=== PATIENT | female | born 1955 | race Caucasian/White ===

== ENCOUNTER 2016-08-18 06:21 | Day surgery (SDC) | payer OTHER ==
[~2016-08-18] VITALS: Ht 160 cm; Wt 61.0 kg
[~2016-08-18 06:21] MED LIST: BUPR100T7 PO; CARV25TA79 PO; CYCL-319 PO; DOCU-144 PO; FERR325C PO; FLUT16SP24 NASAL; HYDR25TA6 PO; IBUP-1542 PO; LISI20TA11 PO; LOPE1LIQ33 PO; LOSA100T7 PO; QUESTRAN PO; RANI150C11 PO; SENN-36 PO; SMV40T PO; SULI150T39 PO; TRAM50TA2 PO; VIT500LI PO
[2016-08-18] MEDS ORDERED: SUMA4CAR SQ (06:57)
[2016-08-18] MEDS ORDERED: TOPI200C5 PO (06:57)
[2016-08-18] MEDS ORDERED: SULI150T39 PO (06:57)
[2016-08-18] MEDS ORDERED: FOLI0.8C PO (06:57)
[2016-08-18] MEDS ORDERED: OMEP40CA6 PO (06:57)
[2016-08-18] MEDS ORDERED: HEPARIN 1000 UNITS/NS (A-LINE) 1,000 ML ONE (07:00)
[2016-08-18] MEDS ORDERED: IODIXANOL LOCM 100 ML BTL ONE ×2 (07:00→08:02)
[2016-08-18] MEDS ORDERED: LIDOCAINE 1% (MDV) 20 ML INJ ONE (07:00)
[2016-08-18] MEDS ORDERED: FENTAnyl 50 MCG/ML VIAL ONE (07:01)
[2016-08-18] MEDS ORDERED: MIDAZOLAM 1 MG/ML 2 ML INJ ONE (07:01)
[2016-08-18 07:03] VITALS: Ht 160 cm; Wt 61.0 kg
[2016-08-18 07:04] VITALS: BP 154/80; PULSE 63; RESP 14
[2016-08-18 07:08] LABS: BASOPHIL # 0.1 10^3/ul (0.0-0.1); BASOPHILS % 0.6 % (0.0-2.0); EOSINOPHILS # 0.2 10^3/ul (0.0-0.5); EOSINOPHILS % 2.3 % (0.0-7.0); HEMATOCRIT 38.4 % (37.0-47.0); HEMOGLOBIN 12.5 g/dl (12.0-16.0); LYMPHOCYTES # 1.8 10^3/ul (0.8-2.9); LYMPHOCYTES % 20.3 % (15.0-51.0); MEAN CORPUSCULAR HEMOGLOBIN 32.8 pg (29.0-33.0); MEAN CORPUSCULAR HGB CONC 32.6 g/dl (32.0-37.0); MEAN CORPUSCULAR VOLUME 100.8 fl (82.0-101.0); MEAN PLATELET VOLUME 11.2 fl (7.4-10.4); MONOCYTE # 0.7 10^3/ul (0.3-0.9); MONOCYTES % 7.9 % (0.0-11.0); NEUTROPHIL # 6.2 10^3/ul (1.6-7.5); NEUTROPHILS % 68.7 % (39.0-77.0); PLATELET COUNT 230 10^3/UL (140-415); RED BLOOD COUNT 3.81 10^6/ul (4.20-5.40); RED CELL DISTRIBUTION WIDTH 12.9 % (11.5-14.5)
[2016-08-18 07:25] LABS: ALBUMIN 4.5 g/dl (3.3-4.9); ALBUMIN/GLOBULIN RATIO 1.66; TOTAL PROTEIN 7.2 g/dl (6.1-8.1)
[2016-08-18 07:26] LABS: CALCIUM 9.5 mg/dl (8.4-10.2); CREATININE 0.79 mg/dl (0.44-1.00); POTASSIUM 3.9 mmol/L (3.5-5.1)
[2016-08-18 07:34] LABS: INR 0.97; PROTIME 12.9 Sec (12.2-14.2)
[2016-08-18 07:35] LABS: PARTIAL THROMBOPLASTIN TIME 29.7 Sec (25.0-35.0)
[2016-08-18] MEDS ORDERED: SOD CHLORIDE 0.9% 1,000 ML IV SCH (08:02)
--- NOTE | 2016-08-18 08:02 | OPPN ---
Date/Time of Note Date/Time of Note DATE: 08/18/16 TIME: 08:01 Operative Report Preoperative Diagnosis Severe RLE claudication and night rest pain Postoperative Diagnosis Same Operation/Procedure Performed Aortogram, RLE angiogram - diagnostic Provider: MICHAEL NORRIS MD Anesthesia: MAC, other (Local) Estimated blood loss: minimal Specimens None Grafts/Implants None Complications: None MICHAEL NORRIS MD Aug 18, 2016 08:02
--- NOTE | 2016-08-18 08:16 | OPR ---
Date/Time of Note Date/Time of Note DATE: 08/18/16 TIME: 08:10 Operative Report Procedure Date: Aug 18, 2016 Preoperative Diagnosis Severe RLE claudication and night rest pain Operation Performed Aortogram, RLE angiogram - diagnostic Surgeon: MICHAEL NORRIS MD Anesthesia: MAC, other (Local) Estimated Blood Loss: minimal Grafts/Implants None Complications: None Pt Condition Post Procedure: stable Indications 61 y/o female s/p infrarenal aortic stent for severe stenosis and claudication, now with severe RLE claudication and night rest pain w/ occlusion of R EIA and [facility] on preprocedure imaging. She now presents for aortogram w/ RLE angiogram and possible intervention. The indications, risks and benefits of the procedure were discussed with the patient, who understood and agreed to proceed. Operative\Procedure Findings The patient was properly identified, brought to angiography suite and placed in supine position. The bilateral groins were prepped and draped in usual sterile fashion. She received moderate sedation throughout the procedure as needed. Using ultrasound, the left femoral artery was evaluated, noted to be patent with moderate disease. Local anesthesia was injected in skin and subcutaneous tissues. A micopuncture needle was used to access the left femoral artery under ultrasound guidance. A micropuncture wire was advanced under fluoroscopy followed by a micropuncture sheath. A 0.035 Bentson wire was advanced into the infrarenal aortic stent. A 5 Upper Sorbian sheath was placed. A flush catheter was advanced and spin test confirmed placement within the aortic stent. Aortogram was performed. This showed patent aortic stent, bilateral common iliac arteries , left internal and external iliac and common femoral arteries. The right external and common femoral arteries were completely occluded. The Bentson wire was readvanced and along with the flush catheter, the right common iliac artery was selected. Right leg angiogram was then performed. This showed reconstitution of the right superficial and profunda femoral arteries. The distal runoff is patent without significant disease throughout at SFA, popliteal and anterior and posterior tibial arteries with two vessels to the foot via posterior tibial and anterior tibial. The entire right leg vasculature is markedly small in caliber. Given these findings, the Bentson wire was readvanced to straighten the flush catheter and both were withdrawn under fluoroscopy. The 5 Upper Sorbian sheath was removed and hemostasis was achieved with manual compression. She tolerated the procedure well without any immediate complications and was transferred to recovery in good condition. MICHAEL NORRIS MD Aug 18, 2016 08:16
[2016-08-18 08:30] VITALS: BP 143/83; PULSE 66; RESP 18
[2016-08-18] MEDS ORDERED: ONDANSETRON 4 MG INJ IV PRN (08:30)
[2016-08-18] MEDS ORDERED: ACETAMINOPHEN 325 MG TAB PO PRN (08:30)
[2016-08-18 09:30] VITALS: BP 149/63; PULSE 53; RESP 18
[2016-08-18 09:42] LABS: ADD SCAN DIFF NO
[2016-08-18 10:45] VITALS: BP 139/61; PULSE 65; RESP 18
[2016-08-18 12:00] VITALS: BP 139/61; PULSE 65; RESP 18
== END 2016-08-18 12:15 | disposition home or self-care (01) ==
LOC: SDS 06:21
PROVIDERS: ATTEND Surgery
DX: I73.9 Peripheral vascular disease, unspecified (principal); I10 Essential (primary) hypertension; E78.5 Hyperlipidemia, unspecified; F17.200 Nicotine dependence, unspecified, uncomplicated
CPT/HCPCS: 36200; 75630; 80053; 85025; 85610; 85730; C1769; C1887; C1894; J1644; J2250; J3010; Q9967; Z7610

== ENCOUNTER 2016-11-05 05:17 | Inpatient (IN) | payer OTHER ==
[~2016-11-05] VITALS: Ht 160 cm; Wt 65.1 kg
[2016-11-05] VITALS (75 sets, daily range): BP systolic 101–187; BP diastolic 42–72; PULSE 56–74; RESP 9–26; Ht 160 cm; Wt 65.1 kg
[~2016-11-05 05:17] MED LIST changes: -BUPR100T7 PO; -DOCU-144 PO; -FERR325C PO; -FLUT16SP24 NASAL; +FOLI0.8C PO; -HYDR25TA6 PO; -LISI20TA11 PO; -LOPE1LIQ33 PO; +OMEP40CA6 PO; -RANI150C11 PO; -SENN-36 PO; -SMV40T PO; +SUMA4CAR SQ; +TOPI200C5 PO; -TRAM50TA2 PO; -VIT500LI PO
[2016-11-05] MEDS ORDERED: THROMBIN 5000 UNIT VIAL ONE (06:38)
[2016-11-05] MEDS ORDERED: GELATIN SIZE 100 SPONGE ONE (06:38)
[2016-11-05] MEDS ORDERED: HEPARIN 1000 UNITS/ML 10 ML INJ ONE ×2 (06:38→08:42)
[2016-11-05] MEDS ORDERED: CETI10TA71 PO (07:01)
[2016-11-05] MEDS ORDERED: HEPARIN 1000 UNITS/ML 10 ML INJ IRR ONE (07:30)
--- NOTE | 2016-11-05 07:32 | HPN ---
Date/Time of Note Date/Time of Note DATE: 11/05/16 TIME: 07:32 Interval H&P Admission Note Pt. seen H&P reviewed: No system changes RADHA SCHULTZ MD Nov 05, 2016 07:32
[2016-11-05] MEDS ORDERED: FENTAnyl 50 MCG/ML VIAL ONE (07:40)
[2016-11-05] MEDS ORDERED: PROPOFOL 20 ML ONE (08:17)
[2016-11-05] MEDS ORDERED: CEFAZOLIN 1 GM INJ ONE (08:17)
[2016-11-05] MEDS ORDERED: LIDOCAINE 2% (SDV) 5 ML INJ ONE (08:17)
[2016-11-05] MEDS ORDERED: SUGAMMADEX SODIUM 200 MG/2 ML VIAL IV ONE (08:17)
[2016-11-05] MEDS ORDERED: SUCCINYLCHOLINE CHLORIDE 100 MG/5 ML SYG IV ONE (08:17)
[2016-11-05] MEDS ORDERED: ROCURONIUM 50 MG INJ ONE (08:17)
[2016-11-05] MEDS ORDERED: THROMBIN 5000 UNIT VIAL TOP ONE (08:45)
[2016-11-05] MEDS ORDERED: GELATIN SIZE 100 SPONGE TOP ONE (08:45)
[2016-11-05] MEDS ORDERED: BUPIVACAINE 0.25% (STERILE-PAK) 30 ML INJ INJ ONE (09:15)
[2016-11-05] MEDS ORDERED: BUPIVACAINE 0.25% (MPF) 30 ML INJ ONE (09:16)
--- NOTE | 2016-11-05 09:32 | OPR ---
Date/Time of Note Date/Time of Note DATE: 11/05/16 TIME: 09:29 Operative Report Procedure Date: Nov 05, 2016 Preoperative Diagnosis PVD Postoperative Diagnosis Same Operation Performed Femoral femoral bypass Surgeon Luis Angel Schultz. Maintenance Shop Clerk: AURA BENTLEY MD Anesthesia Type: general Estimated Blood Loss: 50 - 100 ml's Transfusion Required: no Specimen: none Grafts/Implants 8mm hemashield graft. Complications: no Pt Condition Post Procedure: stable Disposition: PACU LUIS ANGEL SCHULTZ MD Nov 05, 2016 09:32
[2016-11-05] MEDS ORDERED: SOD CHLORIDE 0.9% 1,000 ML IV SCH (09:33)
[2016-11-05] MEDS ORDERED: LABETALOL HCL 20MG INJ ONE (09:47)
--- NOTE | 2016-11-05 09:54 | CONS ---
Date/Time of Note Date/Time of Note DATE: 11/05/16 TIME: 09:50 Assessment/Plan Assessment/Plan Additional Assessment/Plan 61 yo F with HTN, PVD admitted for planned LE bypass which she underwent . PLAN cont home BP meds cont PPI resume asa 81 daily when ok'd by vascular surgery smoking cessation advised for incidental finding of macrocytic anemia, b12/folate/tsh were ordered. will likely need outpatient PCP f/u discharge planning as per primary service (vascular surgery) hospitalist service to continue to follow Consultation Date/Type/Reason Admit Date/Time Nov 05, 2016 at 05:17 Type of Consultation: hospitalist Reason for Consultation medical management Referring Provider: RADHA SCHULTZ MD Hx of Present Illness 61 yo F with pmhx PVD admitted for planned LE bypass for claudication which she underwent today. Pt seen in PACU and is currently without complaint. 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
[2016-11-05] MEDS ORDERED: OXYCODONE/ACETAMINOPHEN (5/325) TAB PO PRN (10:00)
[2016-11-05] MEDS ORDERED: METOCLOPRAMIDE 10 MG INJ IV PRN (10:00)
[2016-11-05] MEDS ORDERED: LABETALOL HCL 20MG INJ IV PRN (10:00)
[2016-11-05] MEDS ORDERED: MEPERIDINE 25 MG INJ IV PRN (10:00)
[2016-11-05] MEDS ORDERED: hydrALAzine 20 MG INJ IV PRN (10:00)
[2016-11-05] MEDS ORDERED: ONDANSETRON 4 MG INJ IV PRN (10:00)
[2016-11-05] MEDS ORDERED: HYDROmorphONE (0.2 MG/ML) 10ML SYG IV PRN ×2 (10:00)
[2016-11-05] MEDS ORDERED: DIPHENHYDRAMINE 50 MG INJ IV PRN (10:00)
[2016-11-05] MEDS ORDERED: FENTAnyl 50 MCG/ML VIAL IV PRN ×2 (10:00)
--- NOTE | 2016-11-05 10:50 | RADRPT ---
PROCEDURE: XR Chest 1 View. CLINICAL INDICATION: Chest pain and shortness of breath, peripheral vascular disease. TECHNIQUE: AP view of the chest was obtained. COMPARISON: None. FINDINGS: The heart size is within normal limits. Calcified atherosclerosis is noted in the aorta. No consol idations are identified. No pneumothorax is seen. Subsegmental atelectasis is seen in the right mid lung. Osseous structures are intact. IMPRESSION: Calcified atherosclerosis in the aorta. Subsegmental atelectasis in the right mid lung. RPTAT: AA .Jaret Hernandez MD, MD Date Time Electronically viewed and signed by .Jaret Hernandez MD, MD on 11/05/2016 10:50 .P/
[2016-11-05 11:01] LABS: AADO2 Arterial 96.4 mmHg (7.0-24.0); Arterial Base Excess -7.5 mmol/L (-3.0-3); Arterial COHb 0.3 % (0.0-3.0); Arterial Fraction of Oxyhgb 95.3 % (93.0-99.0); Arterial HCO3 17.8 mmol/L (22.0-26.0); Arterial MetHb 0.3 % (0.0-1.5); Arterial Total Hemglobin 11.7 g/dl (12.0-18.0); MODE NASAL CANNULA
[2016-11-05 11:12] LABS: BASOPHILS % 0.3 % (0.0-2.0); EOSINOPHILS # 0.1 10^3/ul (0.0-0.5); EOSINOPHILS % 1.2 % (0.0-7.0); HEMATOCRIT 32.3 % (37.0-47.0); HEMOGLOBIN 10.9 g/dl (12.0-16.0); LYMPHOCYTES # 1.5 10^3/ul (0.8-2.9); LYMPHOCYTES % 22.6 % (15.0-51.0); MEAN CORPUSCULAR HEMOGLOBIN 34.4 pg (29.0-33.0); MEAN CORPUSCULAR HGB CONC 33.7 g/dl (32.0-37.0); MEAN CORPUSCULAR VOLUME 101.9 fl (82.0-101.0); MEAN PLATELET VOLUME 10.7 fl (7.4-10.4); MONOCYTE # 0.3 10^3/ul (0.3-0.9); MONOCYTES % 4.5 % (0.0-11.0); NEUTROPHIL # 4.7 10^3/ul (1.6-7.5); NEUTROPHILS % 71.1 % (39.0-77.0); PLATELET COUNT 193 10^3/UL (140-415); RED BLOOD COUNT 3.17 10^6/ul (4.20-5.40); RED CELL DISTRIBUTION WIDTH 12.8 % (11.5-14.5); WHITE BLOOD COUNT 6.6 10^3/ul (4.8-10.8)
[2016-11-05 11:35] LABS: CREATININE 0.64 mg/dl (0.44-1.00)
[2016-11-05 11:36] LABS: CHOL/HDL RATIO 1.9 RATIO
[2016-11-05 11:48] LABS: PT RATIO 1.1
[2016-11-05] MEDS: POTASSIUM CHLORIDE 40 MEQ, CALCIUM CHLORIDE 10% 1 GM in DEXTROSE 5%-0.225% NACL 1,000 ML IV SCH (11:51)
[2016-11-05 12:49] LABS: INR 1.03; PROTIME 13.5 Sec (12.2-14.2)
[2016-11-05 12:52] LABS: PARTIAL THROMBOPLASTIN TIME 45.6 Sec (25.0-35.0)
[2016-11-05 15:04] LABS: THYROID STIMULATING HORMONE 2.6 MIU/L (0.465-4.680)
[2016-11-05 15:39] LABS: FOLATE 10.6 ng/ml (2.8-20.0)
--- NOTE | 2016-11-05 16:11 | RADRPT ---
Vent Rate: 63 bpm RR Interval: 0 msec MD Interval: 134 msec QRS Duration: 72 msec QT Interval: 426 msec QTC Interval: 435 msec P-R-T [place]: 65 - 71 - 90 degrees Normal sinus rhythm ST amp; T wave abnormality, consider anterior ischemia Abnormal ECG Electronically Signed By: Fei Mclean [id number]
[2016-11-05] MEDS: HYDROmorphONE (0.2 MG/ML) 10ML SYG IV PRN ×3 (16:47→21:01)
[2016-11-05] MEDS: LOSARTAN 50 MG TAB PO SCH (19:35)
[2016-11-05] MEDS: CHOLESTYRAMINE 4 GM PACKET PO SCH ×2 (19:37→21:59)
--- NOTE | 2016-11-05 19:43 | OPR ---
DATE OF OPERATION: 11/05/2016 PREOPERATIVE DIAGNOSIS: Right lower extremity severe claudication. POSTOPERATIVE DIAGNOSIS: Right lower extremity severe claudication. OPERATION PERFORMED: [id number] bypass, using 8-mm ADIEL sheet graft. SURGEON: Luis Angel Ramesh MD WEARING APPAREL ASSEMBLER: Mekhi Herrera MD ANESTHESIA: General. INDICATIONS FOR THE PROCEDURE: Patient is a 61-year-old female with extensive history of peripheral vascular disease, status post placement of aortic stent for aortic occlusion. Patient presented here in followup with severe right lower extremity claudication, with few feet distance of claudication distance. Angiogram was done. It showed occlusion of the right iliac arteries, common and external. Patient was considered for the low anterior procedure, due to her high risk for an aortobifemoral bypass. The risks and benefits discussed with the patient and her family. They understood and agreed to proceed. OPERATIVE PROCEDURE: Patient was brought to the operating room after obtaining formal consent. Patient in supine position on the operating table. Anesthesia administered and maintained using endotracheal intubation. Area of surgery was cleaned, prepped and draped in the usual sterile fashion. Common femoral arteries were exposed bilaterally through vertical incisions in both groins. Incisions were done using 15-blade scalpel. Taken down through the subcutaneous tissue using the Bovie. Using sharp dissection with scissors, superficial femoral artery and profunda femoral artery bilaterally were exposed and dissected circumferentially. Patient was heparinized intravenously. An 8-mm ADIEL sheet graft was tunneled in the suprapubic region using a large aortic long clamp. Then a longitudinal arteriotomy was done using 11-blade scalpel and Lange scissors in the common femoral artery, extended to the superficial femoral artery. An end-to-side anastomosis was then established between the graft and the arteriotomy using 6-0 Prolene suture in continuous running technique. Prior to completion of suture alignment, was completed. Hemostasis at the suture line was achieved using Xeroform and thrombin and interrupted 6-0 Prolene suture. Patient had very strong palpable pedal pulses. Incisions were irrigated. Subcutaneous tissue was closed in layers using 3-0 Vicryl sutures. Edges of skin were approximated together using a 4-0 Monocryl in subcuticular fashion. Steri-Strips were applied as well as dry dressing. The patient was then extubated and successfully transferred to the recovery room in stable condition. Dictated By: Luis Angel Ramesh MD /neo/noelle /Document#: [id number] CC: Luis Angel Ramesh MD
[2016-11-05] MEDS ORDERED: FAMOTIDINE 20 MG TAB PO SCH (21:00)
[2016-11-06] VITALS (44 sets, daily range): BP systolic 17–282; BP diastolic 42–278; PULSE 56–76; RESP 12–23
[2016-11-06] MEDS: HYDROCODONE/APAP (5/325) TAB PO PRN ×2 (00:55→08:28)
[2016-11-06] MEDS: ACETAMINOPHEN 325 MG TAB PO PRN ×2 (03:34→14:22)
[2016-11-06] MEDS: POTASSIUM CHLORIDE 40 MEQ, CALCIUM CHLORIDE 10% 1 GM in DEXTROSE 5%-0.225% NACL 1,000 ML IV SCH (04:48)
[2016-11-06 05:33] LABS: BASOPHILS % 0.1 % (0.0-2.0); EOSINOPHILS % 0.5 % (0.0-7.0); HEMATOCRIT 31.3 % (37.0-47.0); HEMOGLOBIN 10.8 g/dl (12.0-16.0); LYMPHOCYTES # 1.8 10^3/ul (0.8-2.9); LYMPHOCYTES % 21.9 % (15.0-51.0); MEAN CORPUSCULAR HEMOGLOBIN 34.2 pg (29.0-33.0); MEAN CORPUSCULAR HGB CONC 34.5 g/dl (32.0-37.0); MEAN CORPUSCULAR VOLUME 99.1 fl (82.0-101.0); MEAN PLATELET VOLUME 10.8 fl (7.4-10.4); MONOCYTE # 0.6 10^3/ul (0.3-0.9); MONOCYTES % 7.1 % (0.0-11.0); NEUTROPHIL # 5.7 10^3/ul (1.6-7.5); NEUTROPHILS % 70.2 % (39.0-77.0); PLATELET COUNT 199 10^3/UL (140-415); RED BLOOD COUNT 3.16 10^6/ul (4.20-5.40); RED CELL DISTRIBUTION WIDTH 12.6 % (11.5-14.5); WHITE BLOOD COUNT 8.2 10^3/ul (4.8-10.8)
[2016-11-06 05:51] LABS: INR 1.01; PROTIME 13.3 Sec (12.2-14.2)
[2016-11-06 05:52] LABS: PARTIAL THROMBOPLASTIN TIME 30.4 Sec (25.0-35.0)
[2016-11-06] MEDS ORDERED: PANTOPRAZOLE (EC) 40 MG TAB PO SCH (06:00)
[2016-11-06 06:09] LABS: CALCIUM 8.9 mg/dl (8.4-10.2); CREATININE 0.57 mg/dl (0.44-1.00); MAGNESIUM 1.7 mg/dl (1.7-2.5); POTASSIUM 3.9 mmol/L (3.5-5.1)
[2016-11-06 06:42] LABS: AADO2 Arterial 26.5 mmHg (7.0-24.0); Arterial Base Excess -6.9 mmol/L (-3.0-3); Arterial COHb 0.3 % (0.0-3.0); Arterial Fraction of Oxyhgb 96.3 % (93.0-99.0); Arterial HCO3 16.5 mmol/L (22.0-26.0); Arterial MetHb 0.1 % (0.0-1.5); Arterial Total Hemglobin 11.2 g/dl (12.0-18.0); MODE ROOM AIR
[2016-11-06] MEDS: LOSARTAN 50 MG TAB PO SCH (08:28)
[2016-11-06] MEDS: CHOLESTYRAMINE 4 GM PACKET PO SCH (08:28)
[2016-11-06] MEDS ORDERED: SULINDAC 150 MG TAB PO SCH (09:00)
[2016-11-06] MEDS ORDERED: FOLIC ACID 0.4 MG TAB PO SCH (09:00)
[2016-11-06] MEDS ORDERED: LORATADINE 10 MG TAB PO SCH (09:00)
--- NOTE | 2016-11-06 09:16 | PN ---
Date/Time of Note Date/Time of Note DATE: 11/06/16 TIME: 09:13 Assessment/Plan VTE Prophylaxis VTE Prophylaxis Intervention: ambulation Lines/Catheters IV Catheter Type (from Nrsg): Peripheral IV Urinary Cath still in place: No Assessment/Plan Assessment/Plan s/p fem-fem bypass palpable distal pulses pain controlled d/c micheal now tolerating diet stable to discharge home with tylenol and advil for pain control f/u with Dr. Ramesh in 2 weeks Subjective 24 Hr Interval Summary Constitutional: no complaints Gastrointestinal: no complaints Genitourinary: no complaints Exam/Review of Systems Vital Signs Vitals Vital Signs Date Time Temp Pulse Resp B/P Pulse Ox O2 Delivery O2 Flow Rate FiO2 11/06/16 07:00 276/272 11/06/16 06:45 59 16 99 11/06/16 04:00 98.4 11/06/16 00:30 Room Air 11/05/16 14:25 2.0 Intake and Output 11/05/16 11/05/16 11/06/16 15:00 23:00 07:00 Intake Total 1050 ml 760 ml Output Total 205 ml 2200 ml Balance 845 ml -1440 ml Exam Constitutional: alert, oriented, well developed Head: atraumatic, normocephalic Respiratory: clear to auscultation Cardiovascular: regular rate and rhythm Gastrointestinal: soft Extremities: normal pulses Neurological: nl strength Results Result Diagram: 11/06/16 0500 11/06/16 0500 Results 24 hrs Laboratory Tests Test 11/05/16 09:33 11/05/16 10:58 11/05/16 12:15 11/06/16 05:00 Blood Gas Specimen Source Blood arterial Blood arterial Arterial Blood Date Drawn 11/05/2016 10:45:07 AM 11/06/2016 6:35:54 AM Arterial Blood pH (Temp corrected) 7.318 L 7.406 Arterial Blood pCO2 (Temp correct) 35.6 26.9 L Arterial Blood pO2 (Temp corrected) 90.1 91.0 Arterial Blood HCO3 17.8 L 16.5 L Arterial Blood Base Excess -7.5 L -6.9 L Arterial Blood Oxygen Saturation 95.9 96.7 Ezio Test N/A N/A Arterial Blood Gas Puncture Site A-Line A-Line Arterial Blood Carboxyhemoglobin 0.3 0.3 Arterial Blood Methemoglobin 0.3 0.1 Blood Gas A-a O2 Differential 96.4 H 26.5 H Oxyhemoglobin Percent 95.3 96.3 Total Hemoglobin 11.7 L 11.2 L Blood Gas Temperature 37.0 37.0 Blood Gas Modality NASAL CANNULA ROOM AIR FiO2 32.0 21.0 Blood Gas Notified Whom TM TM Blood Gas Notified Time 11/05/2016 11:01:04 AM 11/06/2016 6:42:25 AM White Blood Count 6.6 # 8.2 # Red Blood Count 3.17 L 3.16 L Hemoglobin 10.9 L 10.8 L Hematocrit 32.3 L 31.3 L Mean Corpuscular Volume 101.9 H 99.1 Mean Corpuscular Hemoglobin 34.4 H 34.2 H Mean Corpuscular Hemoglobin Concent 33.7 34.5 Red Cell Distribution Width 12.8 12.6 Platelet Count 193 199 Mean Platelet Volume 10.7 H 10.8 H Neutrophils % 71.1 70.2 Lymphocytes % 22.6 21.9 Monocytes % 4.5 7.1 Eosinophils % 1.2 0.5 Basophils % 0.3 0.1 Nucleated Red Blood Cells % 0.0 0.0 Neutrophils # 4.7 5.7 Lymphocytes # 1.5 1.8 Monocytes # 0.3 0.6 Eosinophils # 0.1 0.0 Basophils # 0.0 0.0 Nucleated Red Blood Cells # 0.0 0.0 Sodium Level 141 136 Potassium Level 4.0 3.9 Chloride Level 117 H 111 H Carbon Dioxide Level 19 L 19 L Anion Gap 9 10 Blood Urea Nitrogen 20 11 # Creatinine 0.64 0.57 Glucose Level 107 135 Hemoglobin A1c 5.6 Calcium Level 8.0 L 8.9 Magnesium Level 1.9 1.7 Triglycerides Level 82 Cholesterol Level 128 LDL Cholesterol, Calculated 47 HDL Cholesterol 65 Cholesterol/HDL Ratio 1.9 Vitamin B12 Level 533 Folate 10.6 Thyroid Stimulating Hormone (TSH) 2.600 Prothrombin Time 13.5 13.3 Prothrombin Time Ratio 1.1 1.0 INR International Normalized Ratio 1.03 1.01 Activated Partial Thromboplast Time 45.6 H 30.4 Medications Medications Current Medications Carvedilol (Coreg) 25 mg BID PO Last administered on 11/05/16t 21:59; Admin Dose 25 MG; Start 11/05/16 at 12:00 Cholestyramine Resin (Questran) 1 pkt BID PO Last administered on 11/06/16 08: 28; Admin Dose 1 PKT; Start 11/05/16 at 12:00 Losartan Potassium (Cozaar) 100 mg DAILY PO Last administered on 11/06/16 08: 28; Admin Dose 100 MG; Start 11/05/16 at 10:00 Loratadine 10 mg 10 mg DAILY PO Last administered on 11/05/16 11:53; Admin Dose 10 MG; Start 11/06/16 at 09:00 Sodium Chloride (NS) 1,000 ml @ 100 mls/hr Q10H IV ; Start 11/05/16 at 09:33; Status Future Hold Acetaminophen (Tylenol Tab) 650 mg Q6H PRN PO PAIN LEVEL 1-3 OR FEVER Last administered on 11/06/16 03:34; Admin Dose 650 MG; Start 11/05/16 at 10:00 Acetaminophen/ Hydrocodone Bitart 1 tab 1 tab Q6H PRN PO PAIN LEVEL 4-6 Last administered on 11/06/16 08:28; Admin Dose 1 TAB; Start 11/05/16 at 10:00 Potassium Chloride/Calcium Chloride/Dextrose/ Sodium Chloride (KCl/Ca Chloride/ D5-1/4ns) 1,030 ml @ 60 mls/hr [id number] IV Last administered on 11/06/16 04:48 ; Admin Dose 60 MLS/HR; Start 11/05/16 at 11:00 Folic Acid (Folic Acid) 0.8 mg DAILY PO Last administered on 11/05/16 11:53; Admin Dose 0.8 MG; Start 11/06/16 at 09:00 Pantoprazole (Protonix Tab) 40 mg DAILY@06 PO Last administered on 11/06/16 06 :23; Admin Dose 40 MG; Start 11/06/16 at 06:00 AURA BENTLEY MD Nov 06, 2016 09:16
--- NOTE | 2016-11-06 14:50 | QN ---
Documentation Comment Hospitalist consult service brief note asked to discharge patient on behalf of vascular surgery service as vascular surgeon has departed for the day discharge order entered asa to be resumed when ok'd by vascular surgery as previously noted, pt with macrocytic anemia of unclear etio. a referral was placed via the CM to set the patient up with a resource forester to investigate this matter Pt also needs to stop smoking. CONSTANCE CALLES MD Nov 06, 2016 14:50
--- NOTE | 2016-11-07 16:32 | RADRPT ---
Vent Rate: 57 bpm RR Interval: 0 msec VA Interval: 130 msec QRS Duration: 70 msec QT Interval: 428 msec QTC Interval: 416 msec P-R-T [place]: 58 - 66 - 70 degrees Sinus bradycardia Otherwise normal ECG Electronically Signed By: Fei Mclean [id number]
== END 2016-11-06 16:05 | disposition home or self-care (01) | DRG 254 ==
LOC: REC 05:17 → ICU 11-06 00:10
PROVIDERS: ADMIT Surgery; ATTEND Surgery
PROC: 04BL0ZZ Excision of Left Femoral Artery, Open Approach (ICD-10-PCS; 2016-11-05)
PROC: 041K0JH Bypass Right Femoral Artery to Right Femoral Artery with Synthetic Substitute, Open Approach (ICD-10-PCS; principal; 2016-11-05 07:30)
DX: I70.211 Atherosclerosis of native arteries of extremities with intermittent claudication, right leg (principal); D64.9 Anemia, unspecified; F17.200 Nicotine dependence, unspecified, uncomplicated
CPT/HCPCS: 36600; 71010; 80048; 80061; 82607; 82746; 82803; 83036; 83735; 84443; 85014; 85025; 85610; 85730; 86850; 86900; 86901; 87081; 87086; 93005; 97161; C1768; J0360; J0690; J1170; J1644; J2175; J3010; J3480; J7999

== ENCOUNTER 2016-11-13 16:01 | Inpatient (IN) | payer OTHER ==
[~2016-11-13] VITALS: Ht 160 cm; Wt 61.8 kg
[~2016-11-13 16:01] MED LIST changes: +CETI10TA71 PO; +SUMA4CAR PO; -SUMA4CAR SQ
[2016-11-13 18:39] VITALS: Ht 160 cm; Wt 61.8 kg
[2016-11-13 18:52] VITALS: BP 119/44; PULSE 57; RESP 18
[2016-11-13 18:55] VITALS: PULSE 64
[2016-11-13] MEDS ORDERED: morphine 2 MG INJ IV PRN (19:30)
[2016-11-13] MEDS: ACETAMINOPHEN 325 MG TAB PO PRN (19:55)
[2016-11-13 20:13] VITALS: BP 139/65; RESP 18
[2016-11-13 20:21] VITALS: PULSE 52
[2016-11-13] MEDS ORDERED: SUMATRIPTAN 6 MG/0.5 ML INJ SC ONE (23:30)
[2016-11-13] MEDS ORDERED: SIMV40TA2 PO (23:56)
[2016-11-13] MEDS ORDERED: ASPI81TA3 PO (23:56)
[2016-11-14] VITALS (12 sets, daily range): BP systolic 98–138; BP diastolic 44–63; PULSE 53–64; RESP 17–20
[2016-11-14] MEDS ORDERED: ONDANSETRON 4 MG INJ IV PRN
[2016-11-14] MEDS ORDERED: NITROGLYCERIN (SL) 0.4 MG TAB SL PRN
[2016-11-14 01:15] LABS: BASOPHILS % 0.4 % (0.0-2.0); EOSINOPHILS # 0.2 10^3/ul (0.0-0.5); EOSINOPHILS % 2.6 % (0.0-7.0); HEMATOCRIT 31.2 % (37.0-47.0); HEMOGLOBIN 10.4 g/dl (12.0-16.0); LYMPHOCYTES # 2.4 10^3/ul (0.8-2.9); LYMPHOCYTES % 31.1 % (15.0-51.0); MEAN CORPUSCULAR HEMOGLOBIN 34.3 pg (29.0-33.0); MEAN CORPUSCULAR HGB CONC 33.3 g/dl (32.0-37.0); MEAN PLATELET VOLUME 10.9 fl (7.4-10.4); MONOCYTE # 0.6 10^3/ul (0.3-0.9); MONOCYTES % 7.4 % (0.0-11.0); NEUTROPHIL # 4.6 10^3/ul (1.6-7.5); NEUTROPHILS % 58.4 % (39.0-77.0); PLATELET COUNT 228 10^3/UL (140-415); RED BLOOD COUNT 3.03 10^6/ul (4.20-5.40); RED CELL DISTRIBUTION WIDTH 12.9 % (11.5-14.5); WHITE BLOOD COUNT 7.8 10^3/ul (4.8-10.8)
[2016-11-14] MEDS: TOPIRAMATE 100 MG TAB PO SCH ×3 (01:18→20:21)
[2016-11-14] MEDS: HEPARIN 5,000 UNIT/0.5 ML VIAL SC SCH ×3 (01:18→20:24)
[2016-11-14 01:35] LABS: CALCIUM 9.1 mg/dl (8.4-10.2); CHOL/HDL RATIO 2.6 RATIO; CREATININE 0.78 mg/dl (0.44-1.00); MAGNESIUM 1.9 mg/dl (1.7-2.5); PHOSPHORUS 4.9 mg/dl (2.5-4.9); POTASSIUM 3.8 mmol/L (3.5-5.1)
[2016-11-14 02:05] LABS: THYROID STIMULATING HORMONE 3.61 MIU/L (0.465-4.680)
--- NOTE | 2016-11-14 04:35 | HP ---
Date/Time of Note Date/Time of Note DATE: 11/14/16 TIME: 04:23 Assessment/Plan VTE Prophylaxis VTE Prophylaxis Intervention: heparin Lines/Catheters IV Catheter Type (from Nrs): Saline Lock Assessment/Plan Assessment/Plan ASSESSMENT 61-year-old female with a history of hypertension, CAD, COPD, anxiety, AAA status post stent, intracranial aneurysm status post clipping in 1991, severe right lower extremity claudication status post fem-fem bypass last week on presents with shortness of breath and chest pain PLAN Continue telemetry monitoring Obtain 12-lead EKG Trend troponin 2D echo Cardiology consult Continue her home medications which also include aspirin, beta-jakob, ARB and statin. Supplemental oxygen, as needed nitro and morphine Of note patient stated that she and her family were not able to find palpable pulse on her lower extremity. On physical exam however she does have palpable pulse. She said it was most likely because they did not know how to do proper exam. Patient had a fem-fem bypass last week here at [facility]. Will notify her vascular surgeon. HPI/ROS Admit Date/Time Admit Date/Time Nov 13, 2016 at 18:20 Hx of Present Illness This is a 61-year-old female with a history of hypertension, CAD, COPD, anxiety , AAA status post stent, intracranial aneurysm status post clipping in 1991, severe right lower extremity claudication status post fem-fem bypass last week on 11/05/16. Patient initially presented to an outside hospital but transferred here for insurance reason. She said she woke up in the middle of the night with shortness of breath and then experienced a sharp left-sided chest pain, nonradiating. She also stated she could not palpate the pulse on her right lower extremity which caused quite a significant anxiety. Patient does have a pulse and that she said it was because she and her family did not really know how to palpate for pulse. Denied nausea, vomiting, fever, chills. PMH/Family/Social Past Medical History hypertension, CAD, COPD, anxiety, AAA status post stent, intracranial aneurysm status post clipping in 1991, severe right lower extremity claudication status post fem-fem bypass last week on 11/05/16 Social History Alcohol Use: none Smoking Status: Former smoker Drug Use: none Exam/Review of Systems Vital Signs Vitals Vital Signs Date Time Temp Pulse Resp B/P Pulse Ox O2 Delivery O2 Flow Rate FiO2 11/14/16 04:21 60 11/14/16 00:06 98.1 20 138/63 96 11/13/16 18:52 Room Air Intake and Output 11/13/16 11/13/16 11/14/16 15:00 23:00 07:00 Intake Total 120 ml 530 ml Balance 120 ml 530 ml Exam Constitutional: alert, oriented, well developed Head: atraumatic, normocephalic Eyes: EOMI, PERRL Respiratory: clear to auscultation, normal air movement Cardiovascular: nl pulses, regular rate and rhythm Gastrointestinal: soft, tender Extremities: normal pulses Labs Result Diagram: 11/14/164611/14/167 Medications Medications Current Medications Acetaminophen (Tylenol Tab) 650 mg Q6H PRN PO PAIN AND OR ELEVATED TEMP Last administered on 11/13/16 19:55; Admin Dose 650 MG; Start 11/13/16 at 19:30 Morphine Sulfate (morphine) 2 mg Q4H PRN IV PAIN LEVEL 4-7; Start 11/13/16 at 19:30 Influenza Virus Vaccine (Fluzone) 0.5 ml ONCE ONCE IM* ; Start 11/14/16 at 20:00 ; Stop 11/14/16 at 20:01 Topiramate (Topamax) 100 mg BID PO ; Start 11/13/16 at 23:55 Ondansetron HCl (Zofran Inj) 4 mg Q6H PRN IV NAUSEA AND/OR VOMITING; Start at 00:00 Heparin Sodium (Porcine) (Heparin (5000 Units/0.5 ml)) 5,000 unit BID SC Last administered on 11/14/16 01:18; Admin Dose 5,000 UNIT; Start 11/13/16 at 23:55 Nitroglycerin (Nitroglycerin (Sl Tab) 0.4 Mg) 1 tab Q5M PRN SL ANGINA; Start at 00:00 Aspirin (Aspirin) 81 mg DAILY PO ; Start 11/14/16 at 09:00 Carvedilol (Coreg) 25 mg BID PO ; Start 11/14/16 at 09:00 Cyclobenzaprine HCl (Flexeril) 10 mg TID PO ; Start 11/14/16 at 09:00 Losartan Potassium (Cozaar) 100 mg DAILY PO ; Start 11/14/16 at 09:00 Sulindac (Clinoril) 150 mg DAILY PO ; Start 11/14/16 at 09:00 Folic Acid (Folic Acid) 1 mg DAILY PO ; Start 11/14/16 at 09:00 Atorvastatin Calcium (Lipitor) 20 mg DAILY@21 PO ; Start 11/14/16 at 21:00 RAMBO BEGUM MD Nov 14, 2016 04:34
[2016-11-14] MEDS: ACETAMINOPHEN 325 MG TAB PO PRN ×2 (08:33→12:23)
[2016-11-14] MEDS: SULINDAC 150 MG TAB PO SCH (08:34)
[2016-11-14] MEDS: ASPIRIN 81 MG TAB PO SCH (08:34)
[2016-11-14] MEDS: CYCLOBENZAPRINE 10 MG TAB PO SCH ×3 (08:35→20:23)
[2016-11-14] MEDS: LOSARTAN 50 MG TAB PO SCH (08:35)
[2016-11-14] MEDS: FOLIC ACID 1 MG TAB PO SCH (08:45)
--- NOTE | 2016-11-14 13:59 | RADRPT ---
Echocardiogram Report Patient Name: CHATO MARY Gender: Female Date: 1955 Study Date: 14-Nov-2016 Forensic Identification Specialist: Eliel Vasquez [facility] Location: [id number] Ref. Physician: RAMBO BEGUM Quality: Adequate Procedures: Transthoracic echocardiogram with complete 2D, M-Mode, and doppler examination. Indications: Chest Pain. 2D/M Mode Doppler Measurement Value Normal Ranges Measurement Value Normal Ranges LVIDd 2D 3.8 3.5 - 5.6 cm AV Peak Manny 1.4 m/sec LVIDs 2D 2.0 2.1 - 4.1 cm AV Peak PG 7.4 mmHg LVPWd 2D 1.2 0.6 - 1.1 cm LVOT Peak Manny 1.1 m/sec IVSd 2D 1.2 0.6 - 1.1 cm LVOT Peak PG 4.9 mmHg AoR Diam 2D 2.2 2.0 - 3.7 cm MV E Peak Manny 0.8 m/sec EDV 2D 63.6 cm3 MV A Peak Manny 0.7 m/sec ESV 2D 7.8 cm3 MV E/A 1.2 LA Dimen 2D 3.7 2.3 - 4.0 cm MV Decel Time 244 msec MV Decel Ball[place] 3 MV E/A 1.2 TR Peak Manny 2.5 m/sec TR Peak PG 24.1 mmHg RVSP 27.0 mmHg Findings Left Ventricle: Normal left ventricular systolic function. Normal left ventricular cavity size. Mild concentric left ventricular hypertrophy. Ejection fraction is visually estimated at 65 %. Tissue Doppler/Mitral Doppler indices are within normal limits. Right Ventricle: Abnormal (paradoxical) septal motion consistent with RV volume overload and/or elevated RV enddiastolic pressure. Left Atrium: The left atrium is normal in size. Right Atrium: The right atrium is normal in size. Mitral Valve: Normal appearance and function of the mitral valve with trace physiologic regurgitation. Aortic Valve: Normal appearance of the aortic valve. No significant aortic stenosis or insufficiency. Tricuspid Valve: Normal appearance of the tricuspid valve. Estimated peak PA systolic pressure 27 mmHg. There is trace tricuspid regurgitation. Pulmonic Valve: Normal pulmonic valve appearance. Pericardium: Normal pericardium with no significant pericardial effusion. Aorta: Normal aortic root. IVC: Normal size and normal respiratory collapse consistent with normal right atrial pressure. Conclusions 1.Normal left ventricular systolic function. Normal left ventricular cavity size. Mild concentric left ventricular hypertrophy. Ejection fraction is visually estimated at 65 %. Tissue Doppler/Mitral Doppler indices are within normal limits. 2.Abnormal (paradoxical) septal motion consistent with RV volume overload and/or elevated RV end-diastolic pressure. 3.The left atrium is normal in size. 4.The right atrium is normal in size. 5.Normal appearance and function of the mitral valve with trace physiologic regurgitation. 6.Normal appearance of the aortic valve. No significant aortic stenosis or insufficiency. 7.Normal appearance of the tricuspid valve. Estimated peak PA systolic pressure 27 mmHg. There is trace tricuspid regurgitation. 8.Normal size and normal respiratory collapse consistent with normal right atrial pressure. Electronically Signed By: Dusty Soto 14-Nov-2016 13:59:10 -0700 Patient Name: CHATO MARY Study Date: 14-Nov-2016 [id number]
--- NOTE | 2016-11-14 15:35 | PN ---
Date/Time of Note Date/Time of Note DATE: 11/14/16 TIME: 15:30 Assessment/Plan VTE Prophylaxis VTE Prophylaxis Intervention: heparin Lines/Catheters IV Catheter Type (from Nrsg): Saline Lock Assessment/Plan Assessment/Plan 1. Chest pain, atypical, follow up with cardiology 2. CAD, 3. PVD, status post fem-fem bypass last week on 11/05/16 4. HTN, controlled 5. COPD, stable 6. AAA status post stent 7. Intracranial aneurysm status post clipping in 1991 Subjective 24 Hr Interval Summary Free Text/Dictation headache. intermitted left upper chest pain Exam/Review of Systems Vital Signs Vitals Vital Signs Date Time Temp Pulse Resp B/P Pulse Ox O2 Delivery O2 Flow Rate FiO2 11/14/16 12:46 56 11/14/16 11:41 97.6 20 108/53 100 11/13/16 18:52 Room Air Intake and Output 11/13/16 11/13/16 11/14/16 14:59 22:59 06:59 Intake Total 120 ml 650 ml Balance 120 ml 650 ml Exam Constitutional: alert, oriented, well developed Psych: nl mood/affect, no complaints Head: atraumatic, normocephalic Eyes: EOMI, nl conjunctiva, nl lids ENMT: nl external ears & nose, nl lips & teeth, nl nasal mucosa & septum Neck: non-tender, supple Respiratory: clear to auscultation, normal air movement, No congested cough, No crackles/rales, No diminished breath sounds, No intercostal retraction, No labored breathing, No other, No respirations, No tactile fremitus, No wheezing Cardiovascular: nl pulses, regular rate and rhythm, No S3, No S4, No bruits, No diastolic murmur, No edema, No gallop, No irregular rhythm, No jugular venous distention (JVD), No murmurs/extra sounds, No other, No rub, No systolic murmur Gastrointestinal: nl liver, spleen, non-tender, soft, No ascites, No bowel sounds, No distended, No firm, No hepatomegaly, No mass , No other, No rebound or guarding, No splenomegaly, No surgical scars, No tender Musculoskeletal: nl extremities to inspection Extremities: normal pulses, No calf tenderness, No clubbing, No cyanosis, No edema, No other, No palpable cord, No pitting pedal edema, No tenderness Neurological: [employer] II-XII intact, nl mental status, nl speech, nl strength Results Result Diagram: 11/14/16 0047 11/14/167 Results 24 hrs Laboratory Tests Test 11/14/16 00:47 11/14/16 07:56 White Blood Count 7.8 Red Blood Count 3.03 L Hemoglobin 10.4 L Hematocrit 31.2 L Mean Corpuscular Volume 103.0 H Mean Corpuscular Hemoglobin 34.3 H Mean Corpuscular Hemoglobin Concent 33.3 Red Cell Distribution Width 12.9 Platelet Count 228 Mean Platelet Volume 10.9 H Neutrophils % 58.4 Lymphocytes % 31.1 Monocytes % 7.4 Eosinophils % 2.6 Basophils % 0.4 Nucleated Red Blood Cells % 0.0 Neutrophils # 4.6 Lymphocytes # 2.4 Monocytes # 0.6 Eosinophils # 0.2 Basophils # 0.0 Nucleated Red Blood Cells # 0.0 Sodium Level 137 Potassium Level 3.8 Chloride Level 113 H Carbon Dioxide Level 23 Anion Gap 5 L Blood Urea Nitrogen 18 Creatinine 0.78 Glucose Level 100 Hemoglobin A1c 5.5 Calcium Level 9.1 Phosphorus Level 4.9 Magnesium Level 1.9 Total Bilirubin 0.0 L Direct Bilirubin 0.00 Indirect Bilirubin 0.0 Aspartate Amino Transf (AST/SGOT) 15 Alanine Aminotransferase (ALT/SGPT) 35 Alkaline Phosphatase 81 Troponin I < 0.012 < 0.012 Total Protein 6.0 L Albumin 3.0 L Globulin 3.00 Albumin/Globulin Ratio 1.00 Triglycerides Level 233 H Cholesterol Level 127 LDL Cholesterol, Calculated 32 HDL Cholesterol 48 Cholesterol/HDL Ratio 2.6 Thyroid Stimulating Hormone (TSH) 3.610 Medications Medications Current Medications Acetaminophen (Tylenol Tab) 650 mg Q6H PRN PO PAIN AND OR ELEVATED TEMP Last administered on 11/14/16t 12:23; Admin Dose 650 MG; Start 11/13/16 at 19:30 Morphine Sulfate (morphine) 2 mg Q4H PRN IV PAIN LEVEL 4-7; Start 11/13/16 at 19:30 Influenza Virus Vaccine (Fluzone) 0.5 ml ONCE ONCE IM* ; Start 11/14/16 at 20:00 ; Stop 11/14/16 at 20:01 Topiramate (Topamax) 100 mg BID PO ; Start 11/13/16 at 23:55 Ondansetron HCl (Zofran Inj) 4 mg Q6H PRN IV NAUSEA AND/OR VOMITING; Start at 00:00 Heparin Sodium (Porcine) (Heparin (5000 Units/0.5 ml)) 5,000 unit BID SC Last administered on 11/14/16 08:34; Admin Dose 5,000 UNIT; Start 11/13/16 at 23:55 Nitroglycerin (Nitroglycerin (Sl Tab) 0.4 Mg) 1 tab Q5M PRN SL ANGINA; Start at 00:00 Aspirin (Aspirin) 81 mg DAILY PO Last administered on 11/14/16 08:34; Admin Dose 81 MG; Start 11/14/16 at 09:00 Carvedilol (Coreg) 25 mg BID PO Last administered on 11/14/16 08:35; Admin Dose 25 MG; Start 11/14/16 at 09:00 Cyclobenzaprine HCl (Flexeril) 10 mg TID PO Last administered on 11/14/16 12: 22; Admin Dose 10 MG; Start 11/14/16 at 09:00 Losartan Potassium (Cozaar) 100 mg DAILY PO Last administered on 11/14/16 08: 35; Admin Dose 100 MG; Start 11/14/16 at 09:00 Sulindac (Clinoril) 150 mg DAILY PO Last administered on 11/14/16 08:34; Admin Dose 150 MG; Start 11/14/16 at 09:00 Folic Acid (Folic Acid) 1 mg DAILY PO ; Start 11/14/16 at 09:00 Atorvastatin Calcium (Lipitor) 20 mg DAILY@21 PO ; Start 11/14/16 at 21:00 BLOSSOM LIMA MD Nov 14, 2016 15:35
[2016-11-14] MEDS: IBUPROFEN 600 MG TAB PO PRN (15:56)
[2016-11-14] MEDS ORDERED: INFLUENZA VIRUS VACCINE 0.5 ML SYG IM* ONE (20:00)
[2016-11-14] MEDS ORDERED: ATORVASTATIN 20 MG TAB PO SCH (21:00)
[2016-11-15] VITALS (7 sets, daily range): BP systolic 97–108; BP diastolic 53–63; PULSE 45–49; RESP 17–20
[2016-11-15] MEDS: IBUPROFEN 600 MG TAB PO PRN (08:08)
[2016-11-15] MEDS: FOLIC ACID 1 MG TAB PO SCH (08:10)
[2016-11-15] MEDS: CYCLOBENZAPRINE 10 MG TAB PO SCH (08:11)
[2016-11-15] MEDS: LOSARTAN 50 MG TAB PO SCH (08:11)
[2016-11-15] MEDS: SULINDAC 150 MG TAB PO SCH (08:11)
[2016-11-15] MEDS: ASPIRIN 81 MG TAB PO SCH (08:11)
[2016-11-15] MEDS: TOPIRAMATE 100 MG TAB PO SCH (08:11)
[2016-11-15] MEDS: HEPARIN 5,000 UNIT/0.5 ML VIAL SC SCH (08:12)
--- NOTE | 2016-11-15 11:10 | PDOCDIS ---
Discharge Instructions DIAGNOSIS Discharge Diagnosis 1. Chest pain, suspect atypical 2. CAD, 3. PVD, 4. HTN 5. COPD 6. AAA status post stent 7. Intracranial aneurysm status post clipping in [facility] CONDITION Patient Condition: Stable HOME CARE INSTRUCTIONS: Special Diet: LOW CHOL, LOW FAT, 2 GM NA FOLLOW UP/APPOINTMENTS Follow-up Plan 1. Follow up with your primary care provider in one week JAY DEL ROSARIO Nov 15, 2016 11:10
--- NOTE | 2016-11-15 11:24 | CONS ---
Date/Time of Note Date/Time of Note DATE: 11/15/16 TIME: 11:22 Assessment/Plan Assessment/Plan Additional Assessment/Plan 1. Chest pain, atypical 2. CAD, 3. PVD, status post fem-fem bypass last week on 11/05/16 4. HTN, controlled 5. COPD, stable 6. AAA status post stent 7. Intracranial aneurysm status post clipping in 1991 -nromal trops, no dynamic ekg changes, very atypical history -no arrythmias -continue cv meds -no further cardia cowrk up necessary and d/c planning ok Consultation Date/Type/Reason Admit Date/Time Nov 13, 2016 at 18:20 Hx of Present Illness his is a 61-year-old female with a history of hypertension, CAD, COPD, anxiety, AAA status post stent, intracranial aneurysm status post clipping in 1991, severe right lower extremity claudication status post fem-fem bypass last week on 11/05/16. Patient initially presented to an outside hospital but transferred here for insurance reason. She said she woke up in the middle of the night with shortness of breath and then experienced a sharp left-sided chest pain, nonradiating. She also stated she could not palpate the pulse on her right lower extremity which caused quite a significant anxiety. Patient does have a pulse and that she said it was because she and her family did not really know how to palpate for pulse. Denied nausea, vomiting, fever, chills. She has no exertional chest pain and not very typical in nature either. Psychological: nl mood/affect, no complaints Social History Alcohol Use: none Smoking Status: Former smoker Drug Use: none Exam/Review of Systems Vital Signs Vitals Vital Signs Date Time Temp Pulse Resp B/P Pulse Ox O2 Delivery O2 Flow Rate FiO2 11/15/16 08:17 48 11/15/16 07:37 97.9 17 107/63 99 11/13/16 18:52 Room Air Intake and Output 11/14/16 11/14/16 11/15/16 15:00 23:00 07:00 Intake Total 1320 ml Balance 1320 ml Results Result Diagram: 11/14/16 0047 11/14/16 0047 Medications Medications Current Medications Acetaminophen (Tylenol Tab) 650 mg Q6H PRN PO PAIN AND OR ELEVATED TEMP Last administered on 11/14/16t 12:23; Admin Dose 650 MG; Start 11/13/16 at 19:30 Morphine Sulfate (morphine) 2 mg Q4H PRN IV PAIN LEVEL 4-7; Start 11/13/16 at 19:30 Topiramate (Topamax) 100 mg BID PO Last administered on 11/15/16 08:11; Admin Dose 100 MG; Start 11/13/16 at 23:55 Ondansetron HCl (Zofran Inj) 4 mg Q6H PRN IV NAUSEA AND/OR VOMITING; Start at 00:00 Heparin Sodium (Porcine) (Heparin (5000 Units/0.5 ml)) 5,000 unit BID SC Last administered on 11/15/16 08:12; Admin Dose 5,000 UNIT; Start 11/13/16 at 23:55 Nitroglycerin (Nitroglycerin (Sl Tab) 0.4 Mg) 1 tab Q5M PRN SL ANGINA; Start at 00:00 Aspirin (Aspirin) 81 mg DAILY PO Last administered on 11/15/16 08:11; Admin Dose 81 MG; Start 11/14/16 at 09:00 Carvedilol (Coreg) 25 mg BID PO Last administered on 11/15/16 08:11; Admin Dose 25 MG; Start 11/14/16 at 09:00 Cyclobenzaprine HCl (Flexeril) 10 mg TID PO Last administered on 11/15/16 08: 11; Admin Dose 10 MG; Start 11/14/16 at 09:00 Losartan Potassium (Cozaar) 100 mg DAILY PO Last administered on 11/15/16 08: 11; Admin Dose 100 MG; Start 11/14/16 at 09:00 Sulindac (Clinoril) 150 mg DAILY PO Last administered on 11/15/16 08:11; Admin Dose 150 MG; Start 11/14/16 at 09:00 Folic Acid (Folic Acid) 1 mg DAILY PO ; Start 11/14/16 at 09:00 Atorvastatin Calcium (Lipitor) 20 mg DAILY@21 PO Last administered on 20:22; Admin Dose 20 MG; Start 11/14/16 at 21:00 Ibuprofen (Motrin) 600 mg Q6H PRN PO PAIN LEVEL 1-5 Last administered on 08:08; Admin Dose 600 MG; Start 11/14/16 at 15:30 JESÚS GOMEZ MD Nov 15, 2016 11:24
--- NOTE | 2016-11-15 12:20 | DS ---
Date/Time of Note Date/Time of Note DATE: 11/15/16 TIME: 12:20 Discharge Summary Admission/Discharge Info Admit Date/Time Nov 13, 2016 at 18:20 Discharge Date/Time Discharge Diagnosis 1. Chest pain, suspect atypical 2. CAD, 3. PVD, 4. HTN 5. COPD 6. AAA status post stent 7. Intracranial aneurysm status post clipping in 1991 Patient Condition: Stable Hospital Course This is a 61-year-old female with history of CAD, COPD, anxiety, AAA status post stent, atrial aneurysm, status post clipping in 1991, severe right lower extremity claudication status post femoral bypass on November 05, 2016 came to [facility] for reports of chest pain shortness of breath. Patient reports episodic chest pain nonradiating. She was subsequently brought to [facility] for further evaluation. We did get singer and unloader consultation to see the patient and we did do serial troponins which were all essentially negative. She did have an echocardiogram that showed have an ejection fraction 65% although it was noted she had abnormal paradoxical septal motion consistent with right ventricular volume overload on right ventricle. No plan for intervention at this time and we did optimize her medically. After discussion with the patient singer and unloader, no further plan for intervention at this time. We did otherwise optimized the patient medically. She is continued on antihypertensive or hypertension as well as beta-jakob and statin medication for history of CAD. She is provided with analgesics as needed. During her stay she did improve. She did report resolution of chest pain. She was instructed to follow-up with singer and unloader within a week. The plan of care was discussed with the patient and patient did verbalize understanding. On the day of discharge patient was in stable condition Discussed plan of care with Dr. Olsen [facility] Active Scripts Cyclobenzaprine Hcl* (Cyclobenzaprine Hcl*) 10 Mg Tab, 10 MG PO TID for 30 Days Prov:PERCY OLSEN 01/10/14 Reported Medications Simvastatin* (Zocor*) 40 Mg Tablet, 40 MG PO QHS, #30 TAB 11/13/16 Aspirin* (Aspirin* Chew) 81 Mg Tab.chew, 81 MG PO DAILY, TAB.CHEW 11/13/16 Omeprazole* (Omeprazole*) 40 Mg Capsule.dr, 40 MG PO, #30 CAP 08/18/16 Topiramate (Topiramate ER) 200 Mg Cap.spr.24, 100 MG PO QHS 08/18/16 Folic Acid (Folic Acid) 0.8 Mg Capsule, 1 MG PO DAILY, CAP 08/18/16 Sulindac* (Sulindac*) 150 Mg Tablet, 150 MG PO, TAB 08/18/16 Sumatriptan Succinate* (Sumatriptan Succinate* Inj) 4 Mg/0.5 Ml Cartridge, 100 MG PO DAILY Y for MIGRAINE, EA MAX 6 mg/dose, repeat in 1 hour if needed. MAX 12 mg/24 hours 08/18/16 Cholestyramine* (Cholestyramine* Packet) 4 G/Pkt Packet, 4 GM PO DAILY Y for DIARRHEA, PACKET 09/28/14 Losartan Potassium* (Losartan Potassium*) 100 Mg Tablet, 100 MG PO DAILY, TAB 09/06/14 Ibuprofen* (Ibuprofen*) 600 Mg Tablet, 600 MG PO Q6, TAB 09/06/14 Carvedilol* (Carvedilol*) 25 Mg Tablet, 25 MG PO BID, TAB 01/04/14 Discontinued Reported Medications Cetirizine Hcl (Allergy) 10 Mg Tablet, 10 MG PO DAILY, TAB 11/05/16 Follow-up Plan 1. Follow up with your primary care provider in one week Primary Care Provider Not On Staff Doctor Time spent on discharge: > 30 minutes JAY DEL ROSARIO Nov 15, 2016 12:20
== END 2016-11-15 13:23 | disposition home or self-care (01) | DRG 313 ==
LOC: MS4 18:20
PROVIDERS: ADMIT Internal Medicine; ATTEND Internal Medicine
DX: R07.89 Other chest pain (principal); I25.10 Atherosclerotic heart disease of native coronary artery without angina pectoris; I10 Essential (primary) hypertension; J44.9 Chronic obstructive pulmonary disease, unspecified; F41.9 Anxiety disorder, unspecified; E11.9 Type 2 diabetes mellitus without complications; E78.5 Hyperlipidemia, unspecified; Z98.890 Other specified postprocedural states
CPT/HCPCS: 80053; 80061; 83036; 83735; 84100; 84443; 84484; 85025; 90686; 93306; J1644; J3030